=== PATIENT | female | born 1960 | race Caucasian/White ===

== ENCOUNTER 2021-03-30 10:06 | Day surgery (SDC) | payer BC ==
[~2021-03-30 10:06] MED LIST: Midazolam 1 MG/ML 2 ML SDV ONE; Propofol 200 MG/20 ML SDV ONE; Sodium Chloride 0.9% 10 ML Syringe FLUSH PRN
[2021-03-30] MEDS: Lactated Ringers 1,000 ML IV SCH (10:39)
--- NOTE | 2021-03-30 11:35 | PCM.PN ---
- General Info Date of Service: 03/30/21 - Review of Systems Systems Review Comment:: 60-year-old female here for screening colonoscopy. Her last colon exam was 15 years ago. She denies any recent changes in bowel pattern. She denies having any family history of colon cancer. The patient is medically stable to proceed today. Her recent history and physical is reviewed and no significant changes are noted. I have discussed the proposed colonoscopy with the patient. Risks such as but not limited to bleeding and GI injury reviewed. She agrees to proceed. - Patient Data Vitals - Most Recent: Last Vital Signs Temp 97.8 F 03/30/21 10:25 Pulse 81 03/30/21 10:25 Resp 20 03/30/21 10:25 BP 145/70 H 03/30/21 10:25 Pulse Ox 94 L 03/30/21 10:25 Weight - Most Recent: 92.533 kg Med Orders - Current: Current Medications Lactated Ringer's (Ringers, Lactated) 1,000 mls @ 125 mls/hr IV ASDIRECTED CHEKO Last Admin: 03/30/21 10:39 Dose: 125 mls/hr Documented by: Sodium Chloride (Sodium Chloride 0.9% 10 Ml Syringe) 10 ml FLUSH ASDIRECTED PRN PRN Reason: Keep Vein Open Discontinued Medications Midazolam HCl (Midazolam 1 Mg/Ml 2 Ml Sdv) Confirm Administered Dose 2 mg .ROUTE .STK-MED ONE Stop: 03/30/21 08:31 Propofol (Propofol 200 Mg/20 Ml Sdv) Confirm Administered Dose 400 mg .ROUTE .STK-MED ONE Stop: 03/30/21 08:32 Sepsis Event Note - Focused Exam Vital Signs: Vital Signs Temp Pulse Resp BP Pulse Ox 03/30/21 10:25 97.8 F 81 20 145/70 H 94 L - Problem List Review Problem List Initiated/Reviewed/Updated: Yes - Assessment Assessment:: Colon cancer screening - Plan Plan:: Colonoscopy
[2021-03-30] MEDS ORDERED: Propofol 200 MG/20 ML SDV ONE (11:38)
[2021-03-30] MEDS ORDERED: Midazolam 1 MG/ML 2 ML SDV ONE (11:38)
--- NOTE | 2021-03-30 12:10 | PCM.OPNOTE ---
- General Post-Op/Procedure Note Date of Surgery/Procedure: 03/30/21 Operative Procedure(s): Colonoscopy Findings: Moderate sigmoid diverticulosis without inflammation External hemorrhoids Pre Op Diagnosis: Colon cancer screening Post-Op Diagnosis: Sigmoid diverticulosis. Hemorrhoids Anesthesia Technique: MAC Primary Surgeon: Gallito Zelaya Pathology: none EBL in mLs: 0 Complications: None Condition: Good
--- NOTE | 2021-03-30 12:42 | OR ---
Date of Procedure: 03/30/2021 PREOPERATIVE DIAGNOSIS: Colon cancer screening. POSTOPERATIVE DIAGNOSIS: Sigmoid diverticulosis, external hemorrhoids. OPERATIONS PERFORMED: Colonoscopy. INDICATIONS FOR SURGERY: This 60-year-old female presents today for screening colonoscopy. It has been more than 10 years since her last colon exam. FINDINGS: No polyps were seen on today's exam. The patient does have a moderate degree of diverticulosis in the sigmoid region. This does not appear to be acutely inflamed, or otherwise, complicated. There is also a moderate to large external hemorrhoids, but without inflammation. DESCRIPTION OF PROCEDURE: The patient was taken to the operating room. She was given intravenous sedation, and with her in the left lateral decubitus position, digital rectal exam was performed showing no rectal masses. The Olympus colonoscope was inserted into the rectum. Retroflexed examination of the rectal canal was performed. The scope was then carefully advanced under direct visualization through the entire length of the colon until the cecum was reached. Cecal acquisition was confirmed by noting the normal internal cecal anatomy including the appendiceal orifice and the ileocecal valve. The light was also noted to transilluminate the abdominal wall in the right lower quadrant. After examining the cecum, the scope was slowly withdrawn sequentially re-examining the colonic segments until the entire colon and rectum had been fully examined. The scope was removed and the patient was taken from the operating room in satisfactory condition. ESTIMATED BLOOD LOSS: 0. COMPLICATIONS: None. PROGNOSIS: Good. ZAINA Zelaya MD /[id number]
== END 2021-03-30 13:25 | disposition home or self-care (01) ==
LOC: LL.SDS 10:06
PROVIDERS: ATTEND Surgery
DX: Z12.11 Encounter for screening for malignant neoplasm of colon (principal); K57.30 Diverticulosis of large intestine without perforation or abscess without bleeding; K64.4 Residual hemorrhoidal skin tags; E03.9 Hypothyroidism, unspecified; E78.5 Hyperlipidemia, unspecified; E66.9 Obesity, unspecified; Z98.890 Other specified postprocedural states; Z20.828 Contact with and (suspected) exposure to other viral communicable diseases; Z79.899 Other long term (current) drug therapy; Z79.890 Hormone replacement therapy; Z88.2 Allergy status to sulfonamides; Z91.048 Other nonmedicinal substance allergy status; Z68.33 Body mass index [BMI] 33.0-33.9, adult
CPT/HCPCS: 00812; J2250; J2704; J7120; U0002

== ENCOUNTER 2021-12-08 11:14 | Inpatient (IN) | payer BC ==
[2021-12-08] MEDS ORDERED: Ondansetron 4 MG/2 ML SDV IVPUSH ONE (11:26)
[2021-12-08] MEDS ORDERED: Lactated Ringers 1,000 ML IV ONE ×2 (11:26→13:17)
[2021-12-08 11:58] LABS: PTT,PARTIAL THROMBOPLSTIN TIME 25.2 SEC (23.6-29.8)
[2021-12-08 12:10] LABS: CHLORIDE,CL 99 mmol/L (98-107); SODIUM,NA 135 mmol/L (136-145)
[2021-12-08 12:16] LABS: ANION GAP 16.2 meq/L (7-15)
[2021-12-08 12:46] LABS: O2 DELIVERY DEVICE ROOM AIR
[2021-12-08 12:47] LABS: BASE EXCESS VENOUS 0 mmol/L ((-2)-3); BICARBONATE,VENOUS 23 mmol/L (23-28); O2 SATURATION VENOUS 100 %; PCO2 VENOUS 32 mmHG (41-51); PH,VENOUS 7.47 (7.31-7.41); PO2 VENOUS 191 mmHG
[2021-12-08] MEDS ORDERED: Acetaminophen 325 MG Tab PO PRN (13:28)
[2021-12-08] MEDS ORDERED: Ondansetron 4 MG Tab.DIS PO PRN (13:28)
[2021-12-08] MEDS ORDERED: cefTRIAXone 2 GM Vial IVPUSH SCH (13:30)
[2021-12-08] MEDS ORDERED: REMDESIVIR 200 MG in Sodium Chloride 0.9% 250 ML IV ONE (13:34)
[2021-12-08] MEDS ORDERED: Albuterol/Ipratropium 4 GM Inhalation Spray INH SCH ×2 (13:45→17:30)
[2021-12-08] MEDS ORDERED: REMDESIVIR 100 MG in Sodium Chloride 0.9% 100 ML IV SCH (13:45)
[2021-12-08] MEDS ORDERED: Iopamidol 755 Mg/ML 100 ML Bottle IVPUSH ONE (13:56)
[2021-12-08] MEDS: Dexamethasone 2 MG Tab PO SCH (14:58)
[2021-12-08] MEDS: Sodium Chloride 0.9% 10 ML Syringe FLUSH PRN ×2 (14:59→15:15)
[2021-12-08] MEDS: Enoxaparin 40 MG/0.4 ML Syringe SUBCUT SCH (15:01)
[2021-12-08 16:53] LABS: HEMOGLOBIN A1C 12.1 % (4.3-5.7)
[2021-12-08] MEDS: Albuterol/Ipratropium 4 GM Inhalation Spray INH SCH ×2 (18:41→22:33)
[2021-12-09] MEDS: Albuterol/Ipratropium 4 GM Inhalation Spray INH SCH ×5 (00:30→16:54)
[2021-12-09 08:50] LABS: CHLORIDE,CL 103 mmol/L (98-107); SODIUM,NA 139 mmol/L (136-145)
[2021-12-09 08:51] LABS: ANION GAP 15.4 meq/L (7-15)
[2021-12-09] MEDS: Ascorbic Acid 500 MG Tab PO SCH (10:02)
[2021-12-09] MEDS: Enoxaparin 40 MG/0.4 ML Syringe SUBCUT SCH (10:02)
[2021-12-09] MEDS: Dexamethasone 2 MG Tab PO SCH (10:03)
[2021-12-09] MEDS: Levothyroxine 75 MCG Tab PO SCH (10:03)
[2021-12-09] MEDS ORDERED: cefTRIAXone 2 GM in Sodium Chloride 0.9% 100 ML IV SCH (13:30)
[2021-12-09] MEDS: REMDESIVIR 100 MG in Sodium Chloride 0.9% 100 ML IV SCH (16:30)
[2021-12-09] MEDS: Albuterol/Ipratropium 3.0-0.5 MG/3 ML Neb Soln NEB PRN (22:00)
[2021-12-10] MEDS: Enoxaparin 40 MG/0.4 ML Syringe SUBCUT SCH (08:22)
[2021-12-10] MEDS: Ascorbic Acid 500 MG Tab PO SCH (08:22)
[2021-12-10] MEDS: Albuterol/Ipratropium 3.0-0.5 MG/3 ML Neb Soln NEB PRN ×2 (08:23→21:49)
[2021-12-10] MEDS: Levothyroxine 75 MCG Tab PO SCH (08:23)
[2021-12-10] MEDS: Dexamethasone 2 MG Tab PO SCH (08:24)
[2021-12-10 08:31] LABS: CHLORIDE,CL 101 mmol/L (98-107); SODIUM,NA 139 mmol/L (136-145)
[2021-12-10 08:35] LABS: ANION GAP 14.8 meq/L (7-15)
[2021-12-10] MEDS ORDERED: 50% Dextrose in Water 50 ML Syringe IVPUSH PRN ×2 (11:52→14:10)
[2021-12-10] MEDS ORDERED: Glucagon,Human Recombinant 1 MG Vial IM PRN ×2 (11:52→14:10)
[2021-12-10] MEDS ORDERED: Insulin Regular, Human 100 Units/ML 3 ML Vial IV ONE ×2 (14:10→19:40)
[2021-12-10] MEDS: Insulin Regular, Human 100 Units/ML 3 ML Vial SUBCUT SCH ×3 (15:12→21:46)
[2021-12-10] MEDS: REMDESIVIR 100 MG in Sodium Chloride 0.9% 100 ML IV SCH (15:12)
[2021-12-11] MEDS ORDERED: 50% Dextrose in Water 50 ML Syringe IVPUSH PRN ×4 (00:14→20:09)
[2021-12-11] MEDS ORDERED: Insulin Isophane NPH, Human 100 Units/ML 3 ML Vial SQ ONE (00:14)
[2021-12-11] MEDS ORDERED: Glucagon,Human Recombinant 1 MG Vial IM PRN ×4 (00:14→20:09)
[2021-12-11] MEDS ORDERED: Insulin Regular, Human 100 Units/ML 3 ML Vial SUBCUT ONE ×2 (00:55→20:20)
[2021-12-11] MEDS: Ascorbic Acid 500 MG Tab PO SCH (07:29)
[2021-12-11] MEDS: Dexamethasone 2 MG Tab PO SCH (07:30)
[2021-12-11] MEDS: Enoxaparin 40 MG/0.4 ML Syringe SUBCUT SCH (07:31)
[2021-12-11] MEDS: Levothyroxine 75 MCG Tab PO SCH (07:31)
[2021-12-11] MEDS: Insulin Regular, Human 100 Units/ML 3 ML Vial SUBCUT SCH ×2 (07:33→11:26)
[2021-12-11 09:16] LABS: CHLORIDE,CL 101 mmol/L (98-107); SODIUM,NA 139 mmol/L (136-145)
[2021-12-11] MEDS: REMDESIVIR 100 MG in Sodium Chloride 0.9% 100 ML IV SCH (13:59)
[2021-12-11] MEDS: Sodium Chloride 0.9% 10 ML Syringe FLUSH PRN (15:01)
[2021-12-11] MEDS: Insulin Isophane NPH, Human 100 Units/ML 3 ML Vial SQ SCH (17:24)
[2021-12-11] MEDS: Albuterol/Ipratropium 3.0-0.5 MG/3 ML Neb Soln NEB PRN (19:51)
[2021-12-12 07:22] LABS: ANION GAP 9.4 meq/L (7-15); CHLORIDE,CL 102 mmol/L (98-107); SODIUM,NA 139 mmol/L (136-145)
[2021-12-12] MEDS: Insulin Isophane NPH, Human 100 Units/ML 3 ML Vial SQ SCH ×2 (08:03→17:37)
[2021-12-12] MEDS: Levothyroxine 75 MCG Tab PO SCH (08:04)
[2021-12-12] MEDS: Dexamethasone 2 MG Tab PO SCH (08:05)
[2021-12-12] MEDS: Ascorbic Acid 500 MG Tab PO SCH (08:05)
[2021-12-12] MEDS: Enoxaparin 40 MG/0.4 ML Syringe SUBCUT SCH (08:05)
[2021-12-12] MEDS: Insulin Isophane NPH, Human 100 Units/ML 3 ML Vial SUBCUT SCH ×2 (09:52→17:38)
[2021-12-12] MEDS: REMDESIVIR 100 MG in Sodium Chloride 0.9% 100 ML IV SCH (13:48)
[2021-12-12] MEDS: Sodium Chloride 0.9% 10 ML Syringe FLUSH PRN ×2 (13:49→15:07)
[2021-12-12] MEDS: Albuterol/Ipratropium 3.0-0.5 MG/3 ML Neb Soln NEB PRN (21:15)
[2021-12-13] MEDS: Ascorbic Acid 500 MG Tab PO SCH (07:52)
[2021-12-13] MEDS: Levothyroxine 75 MCG Tab PO SCH (07:52)
[2021-12-13] MEDS: Insulin Isophane NPH, Human 100 Units/ML 3 ML Vial SQ SCH ×2 (07:53→17:20)
[2021-12-13] MEDS: Insulin Isophane NPH, Human 100 Units/ML 3 ML Vial SUBCUT SCH ×2 (07:53→17:11)
[2021-12-13] MEDS: Dexamethasone 2 MG Tab PO SCH (07:53)
[2021-12-13] MEDS: Enoxaparin 40 MG/0.4 ML Syringe SUBCUT SCH (07:56)
[2021-12-13 07:57] LABS: CHLORIDE,CL 100 mmol/L (98-107); SODIUM,NA 137 mmol/L (136-145)
[2021-12-13] MEDS: Albuterol/Ipratropium 3.0-0.5 MG/3 ML Neb Soln NEB SCH (19:28)
[2021-12-14 08:17] LABS: ANION GAP 6.2 meq/L (7-15); CHLORIDE,CL 104 mmol/L (98-107); SODIUM,NA 140 mmol/L (136-145)
[2021-12-14] MEDS: Insulin Isophane NPH, Human 100 Units/ML 3 ML Vial SQ SCH (08:27)
[2021-12-14] MEDS: Insulin Isophane NPH, Human 100 Units/ML 3 ML Vial SUBCUT SCH (08:28)
[2021-12-14] MEDS: Dexamethasone 2 MG Tab PO SCH (08:32)
[2021-12-14] MEDS: Ascorbic Acid 500 MG Tab PO SCH (08:32)
[2021-12-14] MEDS: Levothyroxine 75 MCG Tab PO SCH (08:32)
[2021-12-14] MEDS: Albuterol/Ipratropium 3.0-0.5 MG/3 ML Neb Soln NEB SCH (08:32)
[2021-12-14] MEDS: Enoxaparin 40 MG/0.4 ML Syringe SUBCUT SCH (08:33)
== END 2021-12-14 15:00 | disposition home or self-care (01) | DRG 137 ==
LOC: LL.ED 11:14 → LL.MS 12:54
PROVIDERS: ADMIT Nurse Practitioner Family; ATTEND Nurse Practitioner Family
PROC: 8E0ZXY6 Isolation (ICD-10-PCS; principal; 2021-12-08)
PROC: 3E0DX3Z Introduction of Anti-inflammatory into Mouth and Pharynx, External Approach (ICD-10-PCS; 2021-12-08)
PROC: XW033E5 Introduction of Remdesivir Anti-infective into Peripheral Vein, Percutaneous Approach, New Technology Group 5 (ICD-10-PCS; 2021-12-08)
DX: U07.1 COVID-19 (principal); J96.01 Acute respiratory failure with hypoxia; J12.82 Pneumonia due to coronavirus disease 2019; E03.9 Hypothyroidism, unspecified; E66.9 Obesity, unspecified; R79.89 Other specified abnormal findings of blood chemistry; E78.00 Pure hypercholesterolemia, unspecified; F41.9 Anxiety disorder, unspecified; F32.A Depression, unspecified; E87.2 Acidosis; E11.9 Type 2 diabetes mellitus without complications; Z88.2 Allergy status to sulfonamides; Z91.09 Other allergy status, other than to drugs and biological substances; Z79.890 Hormone replacement therapy; Z90.710 Acquired absence of both cervix and uterus
CPT/HCPCS: 36415; 71045; 71046; 71275; 80048; 80053; 81001; 82150; 82248; 82803; 82947; 83036; 83605; 83690; 83735; 84443; 84484; 85025; 85379; 85610; 85730; 86140; 93005; 94640; 94761; 96374; 99284-25; A9270-GY; J0696; J1650; J1815; J1815-GY; J2405; J7050; J7120; J7620-GY; J8540; Q9967